=== PATIENT | female | born 1990 | race Caucasian/White ===

== ENCOUNTER 2020-03-24 02:20 | Emergency (ER) | payer MEDICAID ==
[~2020-03-24] VITALS: Ht 160 cm; Wt 72.6 kg
[2020-03-24 02:28] VITALS: BP 130/68
[2020-03-24] MEDS ORDERED: LORazepam 1 MG TAB PO ONE (02:35)
--- NOTE | 2020-03-24 02:35 | NUR ---
PT TAKEN TO BED 9 WITH STEADY GAIT.
--- NOTE | 2020-03-24 02:35 | NUR ---
ERMD AT BEDSIDE.
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
--- NOTE | 2020-03-24 02:50 | NUR ---
PT GIVEN ATIVAN 1MG PO. PT GIVEN FOOD AND DRINK WITH PERMISSION OF ERMD. PT EATING WELL AND ABLE TO SWALLOW WITHOUT DIFFICULTY. PT DENIES ALLERGIES TO FOOD AND MEDICATION.
--- NOTE | 2020-03-24 03:04 | NUR ---
PT STATES UNABLE TO GIVE UA AT THIS TIME. NAMRATA MADE AWARE.
--- NOTE | 2020-03-24 03:09 | NUR ---
PT REFUSED TO HAVE LABS DRAWN. ERMD MADE AWARE.
--- NOTE | 2020-03-24 03:39 | NUR ---
PT NOW IN BED, SLEEPING POST ATIVAN ADMINISTRATION.
--- NOTE | 2020-03-24 03:56 | NUR ---
PT RESPONSIVE TO VERBAL TSTIMULI PT STATES," I JUST WANT TO SLEEP." CONTINUES TO REFUSE LAB DRAW AND TO PROVIDE UA.
--- NOTE | 2020-03-24 05:35 | NUR ---
PT RESTING IN BED WITH EYES CLOSED. PT RESPONSIVE TO VERBAL STIMULI. RESPIRATIONS ARE EVEN AND UNLABORED. SKIN IS WARM AND DRY TO TOUCH. PT DENIES PAIN AT THIS TIME. BED IS LOCKED AND IN LOWEST POSITON.
--- NOTE | 2020-03-24 06:44 | NUR ---
PT RESPONSIVE TO VERBAL STIMULI. RESPIRATIONS ARE EVEN AND UNLABORED. SKIN IS WARM AND DRY TO TOUCH. PT DENIES PAIN AT THIS TIME. BED IS LOCKED AND IN LOWEST POSITON.
--- NOTE | 2020-03-24 07:44 | NUR ---
PT REMAINS NON RESPONSIVE ACCUE CHECK 114 --IV PLACED TO LEFT HAND LABS DRAWN MOVING ALL EXTREMITIES---NO TRAUMA NOTED
[2020-03-24 08:35] LABS: BASOPHILS # (AUTO) 0.1 K/uL (0.00-0.22); EOSINOPHILS # (AUTO) 0.1 K/uL (0-0.4); EOSINOPHILS % (AUTO) 0.8 % (0.0-4.0); HEMATOCRIT 30.5 % (36-48); HEMOGLOBIN 10.3 g/dL (12.0-16.0); LYMPHOCYTES % (AUTO) 32.9 % (20.5-51.1); MEAN CORPUSCULAR HEMOGLOBIN 32 pg (27-31); MEAN CORPUSCULAR HGB CONC 34 g/dL (33-37); MEAN CORPUSCULAR VOLUME 94.5 fL (80-94); MONOCYTES # (AUTO) 0.7 K/uL (0.8-1.0); NEUTROPHILS # (AUTO) 3.3 K/uL (1.8-7.7); NEUTROPHILS % (AUTO) 54.3 % (42.2-75.2); PLATELET COUNT (AUTO) 233 K/uL (140-450); RED BLOOD CELL COUNT(AUTO) 3.23 MIL/uL (4.20-5.40); RED CELL DISTRIBUTION WIDTH 13.1 % (11.6-13.7)
[2020-03-24 08:37] LABS: ALBUMIN 2.4 g/dL (3.4-5.0); ANION GAP 16.2 (8-16); ASPARTATE AMINOTRANSFERASE 33 U/L (15-37); CARBON DIOXIDE 21.5 mmol/L (21-32); CHLORIDE 104 mmol/L (98-107); CREATININE 0.6 mg/dL (0.6-1.3); GFR ARICAN-AMERICAN 151 mL/min (>90); GLUCOSE 99 mg/dL (74-106); SODIUM SERUM 139 mmol/L (136-145); TOTAL BILIRUBIN 0.4 mg/dL (0.0-1.0); UREA NITROGEN, BLOOD 6 mg/dL (7-18)
[2020-03-24 08:42] LABS: POTASSIUM 2.7 mmol/L (3.5-5.1)
[2020-03-24] MEDS ORDERED: POTASSIUM CHLORIDE 10 MEQ TABER PO ONE (08:45)
--- NOTE | 2020-03-24 09:48 | NUR ---
PROVIDED PT WITH FOOD . REMAINS VERY SLEEPY---INFORMED PT WE WILL ATTEMPT AGAIN IN 20 MINS GIVE HER TIME TO WAKE UP---
--- NOTE | 2020-03-24 10:59 | NUR ---
pt encouraged to eat and drink plenty of water as provided
[2020-03-24 11:00] VITALS: BP 117/87
--- NOTE | 2020-03-24 11:00 | NUR ---
bus pass provided Patient discharged with v/s stable. Written and verbal after care instructions given and explained. Patient verbalized understanding. Ambulatory with steady gait. All questions addressed prior to discharge. Advised to follow up with PMD.
--- NOTE | 2020-03-24 11:10 | NUR ---
clothing provided from [employer]
== END 2020-03-24 11:10 | disposition home or self-care (01) ==
LOC: MED 02:20
DX: R40.4 Transient alteration of awareness (principal); E87.6 Hypokalemia
CPT/HCPCS: 36415; 80053; 85025; 99285; G0482